=== PATIENT | female | born 1955 | race Hispanic/Latino ===

== ENCOUNTER → 2017-12-21 | Outpatient (CLI) | payer BC ==
[~2017-12-21] MED LIST: AMLODIPINE BESY10 MG PO; GABAPENTIN300 MG PO; LISINOPRIL10 MG PO; METFORMIN HCL500 MG PO; PANTOPRAZOLE SO40 MG PO
--- NOTE | 2017-12-21 11:40 | Diagnostic Imaging Report ---
TECHNIQUE: Magnetic resonance imaging of the LEFT tibia and fibula was performed WITHOUT injected contrast. HISTORY: Bone mineralization evaluation COMPARISON: None available. FINDINGS: Soft tissue ulceration anterior calf extending into the anterior compartment. Hypointense signal on T1 and fluid sensitive sequences throughout the anterior compartment. This may reflect fibrous tissue or dystrophic calcification. No discrete abscess. Bone marrow signal normal. No osteomyelitis or edema. IMPRESSION: Soft tissue ulceration anterior calf with fibrous scarring versus heterotopic ossification within the anterior compartment. No osteomyelitis or discrete abscess. Signed by: Dr. Garry Mendez M.D. on 12/21/2017 11:37 AM
== END ==
LOC: MRI 08:16
PROVIDERS: ATTEND Student in an Organized Health Care Education/Training Program
DX: L97.229 Non-pressure chronic ulcer of left calf with unspecified severity (principal)

== ENCOUNTER → 2020-07-30 | Outpatient (CLI) | payer MEDICARE ==
[~2020-07-30] MED LIST changes: +ACETAMINOPHEN 1000 MG/100 ML 100 ML IV ONE; +ASPIRIN CHEW81 MG PO; +ATORVASTATIN CA20 MG PO; +GLIPIZIDE5 MG PO; +HEPARIN SOD (PORCINE) 1000 UNIT/ML 30ML ONE; +HEPARIN SOD/SOD CHLORIDE 1,000 ML ONE; +HYDRALAZINE HCL50 MG PO; +IRON PO; +LEVOTHYROXINE50 MCG PO; +LIDOCAINE HCL (LTA) 4 ML SOLN ONE; +LIDOCAINE HCL 1% 2 ML AMP ONE; +METOPROLOL SUCC25 MG PO; +MUPIROCIN 2% OINT 22 GM TUBE ONE; +PROTAMINE SULFATE 10 MG/ML 5 ML VIAL ONE; +ROPINIROLE HC0.25 MG PO; +SODIUM CHLORIDE 0.9% 500ML 500 ML ONE; +SUGAMMADEX SODIUM 200 MG/2 ML VIAL IV ONE; +THROMBIN FOR SOLN 5,000 UNIT VIAL ONE; +TIZANIDINE HCL4 M1 PO; +ULTRAM50 MG PO
== END ==
LOC: RESP 14:01
PROVIDERS: ATTEND Thoracic Surgery (Cardiothoracic Vascular Surgery)
DX: Z01.812 Encounter for preprocedural laboratory examination (principal); Z20.822 Contact with and (suspected) exposure to COVID-19; R06.02 Shortness of breath
CPT/HCPCS: 94010; 94727; 94729; U0002

== ENCOUNTER 2020-08-01 07:35 | Inpatient (IN) | payer MEDICARE ==
[2020-07-30 14:34] LABS: BASOPHILS # (AUTO) 0.1 (0.0-0.1); BASOPHILS % 0.9 % (0.0-1.0); EOSINOPHILS # (AUTO) 0.1 (0.0-0.4); EOSINOPHILS % 0.9 % (0.0-6.0); HEMATOCRIT 29.2 % (34.2-44.1); HEMOGLOBIN 9.2 g/dL (12.0-16.0); LYMPHOCYTES # (AUTO) 0.8 (1.0-3.2); MEAN CORPUSCULAR HEMOGLOBIN 27.4 pg (28-32); MEAN CORPUSCULAR HGB CONC 31.5 g/dL (31-35); MEAN CORPUSCULAR VOLUME 86.9 fL (81-99); MONOCYTES # (AUTO) 0.3 (0.2-0.8); MONOCYTES % 5.7 % (4.4-11.3); NEUTROPHILS # (AUTO) 4.2 (2.1-6.9); NEUTROPHILS % 78.1 % (38.7-80.0); PLATELET COUNT 363 x10e3/uL (140-360); RED BLOOD COUNT 3.36 x10e6/uL (3.6-5.1); RED CELL DISTRIBUTION WIDTH 15.2 % (11.7-14.4)
[2020-07-30 14:50] LABS: INR 1.04; PROTHROMBIN TIME 14.2 seconds (11.9-14.5)
[2020-07-30 14:51] LABS: PARTIAL THROMBOPLASTIN TIME 34.6 seconds (23.8-35.5)
[2020-07-30 14:56] LABS: ANION GAP 15.4 mmol/L (8-16); CALCIUM 8.8 mg/dL (8.4-10.2); CREATININE, SERUM 1.36 mg/dL (0.57-1.11); POTASSIUM 3.4 mmol/L (3.5-5.1)
[~2020-08-01] VITALS: Ht 172.7 cm; Wt 64.1 kg
[~2020-08-01 07:35] MED LIST changes: -ACETAMINOPHEN 1000 MG/100 ML 100 ML IV ONE; -HEPARIN SOD (PORCINE) 1000 UNIT/ML 30ML ONE; -HEPARIN SOD/SOD CHLORIDE 1,000 ML ONE; -LIDOCAINE HCL (LTA) 4 ML SOLN ONE; -LIDOCAINE HCL 1% 2 ML AMP ONE; -MUPIROCIN 2% OINT 22 GM TUBE ONE; -PROTAMINE SULFATE 10 MG/ML 5 ML VIAL ONE; -SODIUM CHLORIDE 0.9% 500ML 500 ML ONE; -SUGAMMADEX SODIUM 200 MG/2 ML VIAL IV ONE; -THROMBIN FOR SOLN 5,000 UNIT VIAL ONE
[2020-08-01] MEDS ORDERED: FENTANYL CITRATE/PF 100MCG/2 ML INJ ONE (12:02)
[2020-08-01] MEDS ORDERED: SEVOFLURANE INHAL SOLN 250 ML PEN BTL ONE (13:14)
[2020-08-01] MEDS ORDERED: LIDOCAINE HCL 2% LOCAL INJ 5 ML SDV VIAL INJ ONE (13:14)
[2020-08-01] MEDS ORDERED: ONDANSETRON HCL INJ 2MG/ML 2ML 2 MG/ML VIAL ONE (13:14)
[2020-08-01] MEDS ORDERED: PROPOFOL IV EMULSION 10 MG/ML 20 ML VIAL ONE (13:14)
[2020-08-01] MEDS ORDERED: CEFAZOLIN SOD 1 GM VIAL ONE (13:14)
[2020-08-01] MEDS ORDERED: ROCURONIUM BROMIDE 10 MG/ML 5ML VIAL IV ONE (13:14)
[2020-08-01] MEDS ORDERED: LIDOCAINE HCL 2% JELLY 5 ML TUBE ONE (13:14)
[2020-08-01] MEDS ORDERED: HYDROMORPHONE 2MG/ML 2 MG/ML ML ONE (13:30)
[2020-08-01] MEDS ORDERED: LABETALOL HCL 5 MG/ML 20ML VIAL IV PRN (13:45)
[2020-08-01] MEDS ORDERED: MORPHINE SULFATE INJ 2 MG/ML SYR IV PRN (13:45)
[2020-08-01] MEDS ORDERED: DEXTROSE 50% SYRINGE 50 ML IV PRN (13:45)
[2020-08-01 14:43] LABS: BASOPHILS % 0.5 % (0.0-1.0); EOSINOPHILS # (AUTO) 0.1 (0.0-0.4); EOSINOPHILS % 0.7 % (0.0-6.0); LYMPHOCYTES # (AUTO) 0.8 (1.0-3.2); MEAN CORPUSCULAR HEMOGLOBIN 28.2 pg (28-32); MEAN CORPUSCULAR HGB CONC 32.2 g/dL (31-35); MEAN CORPUSCULAR VOLUME 87.3 fL (81-99); MONOCYTES # (AUTO) 0.6 (0.2-0.8); MONOCYTES % 6.9 % (4.4-11.3); NEUTROPHILS # (AUTO) 6.9 (2.1-6.9); NEUTROPHILS % 82.3 % (38.7-80.0); PLATELET COUNT 283 x10e3/uL (140-360); RED BLOOD COUNT 2.45 x10e6/uL (3.6-5.1); RED CELL DISTRIBUTION WIDTH 15.1 % (11.7-14.4)
[2020-08-01 14:45] LABS: ALBUMIN 2.7 g/dL (3.5-5.0); ALBUMIN/GLOBULIN RATIO 1.1 (0.8-2.0); ANION GAP 14.1 mmol/L (8-16); CALCIUM 7.8 mg/dL (8.4-10.2); CREATININE, SERUM 1.48 mg/dL (0.57-1.11); POTASSIUM 3.1 mmol/L (3.5-5.1)
[2020-08-01 14:54] LABS: HEMATOCRIT 21.4 % (34.2-44.1); HEMOGLOBIN 6.9 g/dL (12.0-16.0)
[2020-08-01 15:54] VITALS: BP 128/56
[2020-08-01 15:57] VITALS: BP 128/56
[2020-08-01 16:02] VITALS: BP 128/56
[2020-08-01 16:03] VITALS: BP 128/56
[2020-08-01] MEDS: INSULIN REGULAR, HUMAN 100 UNIT/1 ML 3ML VIAL SQ SCH ×2 (16:26→21:00)
[2020-08-01] MEDS: SODIUM CHLORIDE 0.9% 1000ML 1,000 ML IV SCH (16:26)
[2020-08-01 16:28] VITALS: BP 112/59
[2020-08-01] MEDS ORDERED: TRAMADOL HCL 50 MG TAB PO PRN (17:15)
[2020-08-01] MEDS ORDERED: POTASSIUM CHLORIDE 20MEQ/100ML 100 ML IV ONE (18:45)
[2020-08-01] MEDS ORDERED: POTASSIUM CHLORIDE 20 MEQ TAB CR PO ONE (18:58)
[2020-08-01] MEDS ORDERED: SODIUM CHLORIDE 0.9% 250ML 250 ML IV ONE (19:00)
[2020-08-01 19:12] LABS: BASOPHILS # (AUTO) 0.1 (0.0-0.1); BASOPHILS % 0.5 % (0.0-1.0); HEMOGLOBIN 7.2 g/dL (12.0-16.0); LYMPHOCYTES # (AUTO) 0.4 (1.0-3.2); LYMPHOCYTES % 3.5 % (18.0-39.1); MEAN CORPUSCULAR HGB CONC 31.4 g/dL (31-35); MEAN CORPUSCULAR VOLUME 89.1 fL (81-99); MONOCYTES # (AUTO) 0.4 (0.2-0.8); MONOCYTES % 3.8 % (4.4-11.3); NEUTROPHILS # (AUTO) 10.6 (2.1-6.9); NEUTROPHILS % 91.7 % (38.7-80.0); PLATELET COUNT 313 x10e3/uL (140-360); RED BLOOD COUNT 2.57 x10e6/uL (3.6-5.1); RED CELL DISTRIBUTION WIDTH 15.4 % (11.7-14.4)
[2020-08-01 19:15] LABS: HEMATOCRIT 22.9 % (34.2-44.1)
[2020-08-01 20:00] VITALS: BP 124/54
[2020-08-01] MEDS ORDERED: CEFAZOLIN SOD 1 GM VIAL IV ONE (20:00)
[2020-08-01] MEDS ORDERED: CEFAZOLIN SOD 1 GM/NS 50ML 50 ML IV ONE (20:00)
[2020-08-01] MEDS ORDERED: SODIUM CHLORIDE 0.9% 250ML 250 ML ONE (20:16)
[2020-08-01] MEDS: GABAPENTIN 300 MG CAP PO SCH (20:39)
[2020-08-01] MEDS ORDERED: ATORVASTATIN 20 MG TAB PO SCH (21:00)
[2020-08-01] MEDS ORDERED: ROPINIROLE HCL 0.25 MG TAB PO SCH (21:00)
[2020-08-01] MEDS ORDERED: ATORVASTATIN 40 MG TAB PO SCH (21:00)
[2020-08-01] MEDS: TIZANIDINE HCL 4 MG TAB PO SCH (22:11)
[2020-08-02] VITALS: BP 119/70
[2020-08-02] MEDS: MORPHINE SULFATE INJ 4 MG/ML INJ 1ML IV PRN ×2 (01:46→08:46)
[2020-08-02 04:00] VITALS: BP 147/60
[2020-08-02] MEDS: SODIUM CHLORIDE 0.9% 1000ML 1,000 ML IV SCH (04:30)
[2020-08-02] MEDS: HYDROCODONE/APAP 5MG-325MG TAB PO PRN ×3 (05:37→14:26)
[2020-08-02] MEDS ORDERED: LEVOTHYROXINE SODIUM 25 MCG TABLET PO SCH (06:00)
[2020-08-02 06:57] LABS: BASOPHILS % 0.4 % (0.0-1.0); HEMATOCRIT 27.9 % (34.2-44.1); HEMOGLOBIN 9.2 g/dL (12.0-16.0); LYMPHOCYTES # (AUTO) 0.9 (1.0-3.2); LYMPHOCYTES % 9.1 % (18.0-39.1); MEAN CORPUSCULAR HEMOGLOBIN 28.9 pg (28-32); MEAN CORPUSCULAR VOLUME 87.7 fL (81-99); MONOCYTES # (AUTO) 0.9 (0.2-0.8); MONOCYTES % 8.6 % (4.4-11.3); NEUTROPHILS % 81.4 % (38.7-80.0); PLATELET COUNT 248 x10e3/uL (140-360); RED BLOOD COUNT 3.18 x10e6/uL (3.6-5.1); RED CELL DISTRIBUTION WIDTH 14.7 % (11.7-14.4)
[2020-08-02 07:17] LABS: ALBUMIN 2.8 g/dL (3.5-5.0); ANION GAP 14.3 mmol/L (8-16); CALCIUM 7.9 mg/dL (8.4-10.2); CREATININE, SERUM 1.49 mg/dL (0.57-1.11); POTASSIUM 3.3 mmol/L (3.5-5.1)
[2020-08-02] MEDS: INSULIN REGULAR, HUMAN 100 UNIT/1 ML 3ML VIAL SQ SCH ×2 (07:30→11:30)
[2020-08-02] MEDS ORDERED: GLIPIZIDE 5 MG TAB PO SCH (07:30)
[2020-08-02 08:12] VITALS: BP 140/60
[2020-08-02] MEDS: TIZANIDINE HCL 4 MG TAB PO SCH (08:39)
[2020-08-02] MEDS: GABAPENTIN 300 MG CAP PO SCH ×2 (08:39→14:26)
[2020-08-02 08:40] VITALS: BP 140/60
[2020-08-02] MEDS ORDERED: LEVOTHYROXINE SODIUM 50 MCG TAB PO SCH (09:00)
[2020-08-02] MEDS ORDERED: METOPROLOL SUCCINATE 25 MG TAB XL PO SCH (09:00)
[2020-08-02] MEDS ORDERED: ASPIRIN 81 MG CHEW TAB PO SCH (09:00)
[2020-08-02] MEDS ORDERED: CEPACOL SORE THROAT LOZENGES PO PRN (10:30)
[2020-08-02] MEDS ORDERED: ONDANSETRON HCL INJ 2MG/ML 2ML 2 MG/ML VIAL IV PRN (10:30)
[2020-08-02] MEDS ORDERED: CHLORASEPTIC SPRAY 177 ML BTL MM PRN (10:30)
[2020-08-02 11:46] VITALS: BP 143/55
[2020-08-02] MEDS ORDERED: POTASSIUM CHLORIDE 20 MEQ TAB CR PO NR (13:45)
[2020-08-02] MEDS ORDERED: TYLENOL # 31 EA PO (14:35)
[2020-08-02] MEDS ORDERED: MUPIROCIN22 GM TOP (14:37)
[2020-08-02] MEDS ORDERED: ENOXAPARIN SOD INJ 40 MG/0.4 ML SYR SC SCH (17:00)
[2020-08-03] MEDS ORDERED: ULTRAM50 MG PO (15:32)
[2020-08-03] MEDS ORDERED: ONDANSETRON ODT8 MG PO (15:37)
== END 2020-08-02 15:30 | disposition home or self-care (01) | DRG 38 ==
LOC: OR 07:35 → PACU V 13:23 → MED/SURG 15:47
PROVIDERS: ADMIT Thoracic Surgery (Cardiothoracic Vascular Surgery); ATTEND Thoracic Surgery (Cardiothoracic Vascular Surgery)
PROC: 03CH0ZZ Extirpation of Matter from Right Common Carotid Artery, Open Approach (ICD-10-PCS; 2020-08-01)
PROC: 03CK0ZZ Extirpation of Matter from Right Internal Carotid Artery, Open Approach (ICD-10-PCS; 2020-08-01)
PROC: 03UH0JZ Supplement Right Common Carotid Artery with Synthetic Substitute, Open Approach (ICD-10-PCS; 2020-08-01)
PROC: 30233N1 Transfusion of Nonautologous Red Blood Cells into Peripheral Vein, Percutaneous Approach (ICD-10-PCS; principal; 2020-08-01 10:00)
DX: I65.23 Occlusion and stenosis of bilateral carotid arteries (principal); D62 Acute posthemorrhagic anemia; E11.22 Type 2 diabetes mellitus with diabetic chronic kidney disease; I12.9 Hypertensive chronic kidney disease with stage 1 through stage 4 chronic kidney disease, or unspecified chronic kidney disease; N18.30 Chronic kidney disease, stage 3 unspecified; K21.9 Gastro-esophageal reflux disease without esophagitis; E78.5 Hyperlipidemia, unspecified; E11.51 Type 2 diabetes mellitus with diabetic peripheral angiopathy without gangrene; Z20.822 Contact with and (suspected) exposure to COVID-19; I25.10 Atherosclerotic heart disease of native coronary artery without angina pectoris; Z95.5 Presence of coronary angioplasty implant and graft
CPT/HCPCS: 36415; 71046; 80048; 80053; 82948; 85025; 85610; 85730; 86850; 86900; 86920; 88304; 88311; 93005; 94010; 94727; 94729; C1768; J0690; J1644; J1817; J2001; J2270; J2405; J2720; J3010; J3480; J7030; J7040; J7050; P9016; U0002

== ENCOUNTER 2020-08-03 09:19 | Emergency (ER) | payer MEDICARE ==
[~2020-08-03] VITALS: Ht 172.7 cm; Wt 67.6 kg
[~2020-08-03 09:19] MED LIST changes: +MUPIROCIN22 GM TOP; +TYLENOL # 31 EA PO
[2020-08-03] MEDS ORDERED: SODIUM CHLORIDE FLUSH 10 ML SYR INJ PRN (10:00)
[2020-08-03] MEDS ORDERED: SODIUM CHLORIDE 0.9% 500ML 500 ML IV ONE (10:00)
[2020-08-03] MEDS ORDERED: SODIUM CHLORIDE 0.9% 500ML 500 ML ONE (10:35)
[2020-08-03] MEDS ORDERED: ONDANSETRON HCL INJ 2MG/ML 2ML 2 MG/ML VIAL IV STA (11:09)
[2020-08-03] MEDS ORDERED: MORPHINE SULFATE 5 MG/ML VIAL IV ONE (11:15)
[2020-08-03] MEDS ORDERED: MORPHINE SULFATE INJ 4 MG/ML INJ 1ML ONE (11:20)
[2020-08-03] MEDS ORDERED: SODIUM CHLORIDE 0.9% 50ML 50 ML ONE (11:45)
[2020-08-03] MEDS ORDERED: IOPAMIDOL 370 MG/ML 200 ML INFUS..BTL INJ ONE (11:45)
[2020-08-03] MEDS ORDERED: HYDRALAZINE HCL 20 MG/ML VIAL ONE (13:18)
[2020-08-03] MEDS ORDERED: HYDRALAZINE HCL 20 MG/ML VIAL IV NR (13:46)
[2020-08-03] MEDS ORDERED: LABETALOL HCL 5 MG/ML 20ML VIAL IV STA (14:23)
[2020-08-03] MEDS ORDERED: ULTRAM50 MG PO (15:32)
[2020-08-03] MEDS ORDERED: ONDANSETRON ODT8 MG PO (15:37)
[2020-08-03 16:08] VITALS: BP 188/84
== END 2020-08-03 15:44 | disposition home or self-care (01) ==
LOC: FSED 09:46
DX: G89.18 Other acute postprocedural pain (principal); E11.65 Type 2 diabetes mellitus with hyperglycemia; I10 Essential (primary) hypertension; R74.8 Abnormal levels of other serum enzymes; D64.9 Anemia, unspecified; E78.5 Hyperlipidemia, unspecified; I25.10 Atherosclerotic heart disease of native coronary artery without angina pectoris; M21.371 Foot drop, right foot
CPT/HCPCS: 70491; 80053; 85025; 96374; 96375; 99284; J0360; J2270 ×2; J2405; J7040; Q9967

== ENCOUNTER 2020-11-05 14:39 | Observation (INO) | payer MEDICARE ==
[~2020-11-05] VITALS: Ht 172.7 cm; Wt 67.6 kg
[~2020-11-05 14:39] MED LIST changes: +ONDANSETRON ODT8 MG PO
[2020-11-05 15:55] LABS: BASOPHILS # (AUTO) 0.1 (0.0-0.1); EOSINOPHILS # (AUTO) 0.1 (0.0-0.4); EOSINOPHILS % 0.7 % (0.0-6.0); HEMATOCRIT 30.5 % (34.2-44.1); HEMOGLOBIN 10.3 g/dL (12.0-16.0); LYMPHOCYTES # (AUTO) 0.9 (1.0-3.2); LYMPHOCYTES % 13.4 % (18.0-39.1); MEAN CORPUSCULAR HEMOGLOBIN 28.1 pg (28-32); MEAN CORPUSCULAR HGB CONC 33.8 g/dL (31-35); MEAN CORPUSCULAR VOLUME 83.1 fL (81-99); MONOCYTES # (AUTO) 0.4 (0.2-0.8); MONOCYTES % 6.3 % (4.4-11.3); NEUTROPHILS # (AUTO) 5.5 (2.1-6.9); NEUTROPHILS % 78.2 % (38.7-80.0); PLATELET COUNT 444 x10e3/uL (140-360); RED BLOOD COUNT 3.67 x10e6/uL (3.6-5.1); RED CELL DISTRIBUTION WIDTH 14.9 % (11.7-14.4)
[2020-11-05 15:56] LABS: CLARITY,URINE SL CLOUDY (CLEAR); COLOR,URINE YELLOW (YELLOW); KETONES,URINE NEGATIVE (NEGATIVE); LEUKOCYTE ESTERASE ,URINE NEGATIVE (NEGATIVE); NITRITE,URINE NEGATIVE (NEGATIVE); PROTEIN,URINE DIPSTICK >=300 (NEGATIVE); URINE UROBILINOGEN 0.2 mg/dL (0.2 - 1)
[2020-11-05 16:11] LABS: BACTERIA,URINE FEW /HPF; EPITHELIAL CELLS,URINE FEW /LPF
[2020-11-05 16:15] LABS: ALBUMIN 2.9 g/dL (3.5-5.0); ALBUMIN/GLOBULIN RATIO 0.8 (0.8-2.0); ANION GAP 15.6 mmol/L (8-16); CALCIUM 8.7 mg/dL (8.4-10.2); CREATININE, SERUM 2.18 mg/dL (0.57-1.11); MAGNESIUM 2.1 MG/DL (1.3-2.1); PHOSPHORUS 2.8 MG/DL (2.3-4.7)
[2020-11-05 16:16] LABS: POTASSIUM 2.6 mmol/L (3.5-5.1)
[2020-11-05] MEDS ORDERED: POTASSIUM CHLORIDE 20 MEQ TAB CR PO STA (16:16)
[2020-11-05 16:23] LABS: CREATINE KINASE MB 3.9 ng/mL (0-5.0)
[2020-11-05] MEDS ORDERED: POTASSIUM CHLORIDE 20MEQ/100ML 200 ML IV ONE (16:30)
[2020-11-05 16:36] LABS: THYROID STIMULATING HORMONE 2.771 uIU/mL (0.350-4.940)
[2020-11-05] MEDS ORDERED: TIZANIDINE HCL 4 MG TAB PO PRN (18:30)
[2020-11-05] MEDS ORDERED: ACETAMINOPHEN/CODEINE 300MG - 30MG TAB PO PRN (18:30)
[2020-11-05] MEDS ORDERED: HYDRALAZINE HCL 20 MG/ML VIAL IV PRN (18:30)
[2020-11-05] MEDS ORDERED: TRAMADOL HCL 50 MG TAB PO PRN (18:30)
[2020-11-05] MEDS ORDERED: ONDANSETRON HCL 4 MG ORAL DISINTEGRATING TAB PO PRN (18:30)
[2020-11-05] MEDS ORDERED: DEXTROSE 50% SYRINGE 50 ML IV PRN (18:30)
[2020-11-05 18:45] VITALS: BP 201/71
[2020-11-05 19:42] VITALS: BP 197/92
[2020-11-05] MEDS ORDERED: SPIRONOLACTONE 25 MG TAB PO ONE (19:45)
[2020-11-05 19:59] VITALS: BP 197/92
[2020-11-05] MEDS: AMLODIPINE BESYLATE 10 MG TAB PO SCH (20:39)
[2020-11-05] MEDS: METOPROLOL SUCCINATE 25 MG TAB XL PO SCH (20:40)
[2020-11-05 21:00] VITALS: BP 197/92
[2020-11-05] MEDS: INSULIN LISPRO 100 UNIT/1 ML 3ML VIAL SQ SCH (21:00)
[2020-11-05] MEDS ORDERED: ROPINIROLE HCL 0.25 MG TAB PO SCH (21:00)
[2020-11-05] MEDS ORDERED: ATORVASTATIN 40 MG TAB PO SCH (21:00)
[2020-11-05] MEDS: GABAPENTIN 300 MG CAP PO SCH (22:24)
[2020-11-05 23:47] LABS: ANION GAP 13.7 mmol/L (8-16); CALCIUM 8.1 mg/dL (8.4-10.2); CREATININE, SERUM 2.17 mg/dL (0.57-1.11)
[2020-11-05 23:50] VITALS: BP 161/68
[2020-11-05 23:50] LABS: POTASSIUM 2.7 mmol/L (3.5-5.1)
[2020-11-06] MEDS ORDERED: POTASSIUM CHLORIDE 20 MEQ TAB CR PO ONE ×2 (00:15→04:15)
[2020-11-06] MEDS ORDERED: POTASSIUM CHLORIDE 20 MEQ TAB CR PO STA (04:08)
[2020-11-06] MEDS ORDERED: POTASSIUM CHLORIDE 10MEQ EA PO ONE ×2 (04:20→09:20)
[2020-11-06 04:58] LABS: BASOPHILS # (AUTO) 0.1 (0.0-0.1); EOSINOPHILS # (AUTO) 0.1 (0.0-0.4); EOSINOPHILS % 2.4 % (0.0-6.0); HEMATOCRIT 28.5 % (34.2-44.1); HEMOGLOBIN 9.3 g/dL (12.0-16.0); LYMPHOCYTES # (AUTO) 1.2 (1.0-3.2); LYMPHOCYTES % 20.4 % (18.0-39.1); MEAN CORPUSCULAR HEMOGLOBIN 27.1 pg (28-32); MEAN CORPUSCULAR HGB CONC 32.6 g/dL (31-35); MEAN CORPUSCULAR VOLUME 83.1 fL (81-99); MONOCYTES # (AUTO) 0.5 (0.2-0.8); MONOCYTES % 8.4 % (4.4-11.3); NEUTROPHILS % 67.1 % (38.7-80.0); PLATELET COUNT 356 x10e3/uL (140-360); RED BLOOD COUNT 3.43 x10e6/uL (3.6-5.1)
[2020-11-06 05:05] VITALS: BP 121/67
[2020-11-06 05:20] LABS: CALCIUM 8.4 mg/dL (8.4-10.2); CREATININE, SERUM 2.03 mg/dL (0.57-1.11)
[2020-11-06] MEDS ORDERED: LEVOTHYROXINE SODIUM 25 MCG TABLET PO SCH (06:00)
[2020-11-06 06:47] LABS: ANION GAP 13.2 mmol/L (8-16); CALCIUM 8.7 mg/dL (8.4-10.2); CREATININE, SERUM 1.92 mg/dL (0.57-1.11); POTASSIUM 3.2 mmol/L (3.5-5.1)
[2020-11-06] MEDS ORDERED: GLIPIZIDE 5 MG TAB PO SCH (07:30)
[2020-11-06] MEDS: INSULIN LISPRO 100 UNIT/1 ML 3ML VIAL SQ SCH ×2 (07:30→11:30)
[2020-11-06 08:13] VITALS: BP 158/68
[2020-11-06] MEDS: AMLODIPINE BESYLATE 10 MG TAB PO SCH (09:00)
[2020-11-06] MEDS ORDERED: ASPIRIN 81 MG CHEW TAB PO SCH ×2 (09:00→21:00)
[2020-11-06] MEDS: GABAPENTIN 300 MG CAP PO SCH (09:00)
[2020-11-06] MEDS ORDERED: SPIRONOLACTONE 25 MG TAB PO SCH (09:00)
[2020-11-06] MEDS: METOPROLOL SUCCINATE 25 MG TAB XL PO SCH (09:00)
[2020-11-06] MEDS ORDERED: ALDACTONE50 MG PO ×2 (10:49→10:51)
[2020-11-06 11:58] VITALS: BP 156/65
[2020-11-06] MEDS ORDERED: AMLODIPINE BESYLATE 10 MG TAB PO SCH (21:00)
[2020-11-06] MEDS ORDERED: METOPROLOL SUCCINATE 25 MG TAB XL PO SCH (21:00)
== END 2020-11-06 13:09 | disposition home or self-care (01) ==
LOC: ER 15:33 → INTOOBSV 16:17 → ERHOLD 16:17 → MED/SURG 18:25
PROVIDERS: ADMIT Internal Medicine; ATTEND Internal Medicine
DX: E87.6 Hypokalemia (principal); E11.22 Type 2 diabetes mellitus with diabetic chronic kidney disease; I12.9 Hypertensive chronic kidney disease with stage 1 through stage 4 chronic kidney disease, or unspecified chronic kidney disease; I16.0 Hypertensive urgency; N18.32 Chronic kidney disease, stage 3b; E11.42 Type 2 diabetes mellitus with diabetic polyneuropathy; E03.9 Hypothyroidism, unspecified; N17.9 Acute kidney failure, unspecified; Z79.84 Long term (current) use of oral hypoglycemic drugs; Z20.822 Contact with and (suspected) exposure to COVID-19
CPT/HCPCS: 36415 ×2; 71045; 80048 ×2; 80053; 81001; 82550; 82553; 82948 ×2; 83735; 84100; 84443; 84484; 85025 ×2; 93005; 99284; G0378 ×2; J3480; U0002

== ENCOUNTER 2021-03-06 11:40 | Emergency (ER) | payer MEDICARE ==
[~2021-03-06] VITALS: Ht 172.7 cm; Wt 67.6 kg
[~2021-03-06 11:40] MED LIST changes: +ALDACTONE50 MG PO
[2021-03-06] MEDS ORDERED: TETRACAINE HCL 0.5% OPTH SOLN 4 ML BTL ONE (12:05)
[2021-03-06] MEDS ORDERED: FLUORESCEIN SOD(OPTH) 1 MG STRP ONE (12:05)
[2021-03-06] MEDS ORDERED: CLEOCIN HCL300 MG PO (12:08)
[2021-03-06] MEDS ORDERED: TETRACAINE HCL 0.5% OPTH SOLN 4 ML BTL OP ONE (12:15)
[2021-03-06] MEDS ORDERED: FLUORESCEIN SOD(OPTH) 1 MG STRP OP ONE (12:15)
== END 2021-03-06 12:39 | disposition home or self-care (01) ==
LOC: ER 12:00
DX: H57.11 Ocular pain, right eye (principal); I10 Essential (primary) hypertension; E11.9 Type 2 diabetes mellitus without complications; E78.5 Hyperlipidemia, unspecified; I25.10 Atherosclerotic heart disease of native coronary artery without angina pectoris; N18.9 Chronic kidney disease, unspecified; M21.371 Foot drop, right foot
CPT/HCPCS: 99283